=== PATIENT | male | born 1945 | race Caucasian/White ===

== ENCOUNTER 2021-07-30 01:38 | Emergency (ER) | payer MEDICARE, OTHER ==
[~2021-07-30 01:38] MED LIST: BAYER CHEWABLE81 MG PO; CILOSTAZOL100 MG PO; CLEOCIN HCL300 MG PO; CREON DR 6,0001 EACH PO; CRESTOR40 MG PO; FLOMAX0.4 MG PO; FLONASE 0.05% N16 GM; IMDUR ER TAB 3030 MG PO; IPRAT-ALBUT 0.5-3 ML INH; NEURONTIN800 MG PO; NORCO 10-325 T1 EACH PO; NORVASC2.5 MG PO; ONDANSETRON ODT4 MG PO; POTASSIUM CHLO10 ME2 PO; PROTONIX 40 MG40 M1 PO; RANOLAZINE ER500 MG PO; RELISTOR PO; SINGULAIR10 MG PO; VENTOLIN HFA 66.7 GM INH; WELCHOL 625 MG625 MG PO; ZANAFLEX6 MG PO; ZOLPIDEM TARTRA10 MG PO
[2021-07-30 02:23] LABS: HEMOGLOBIN 12.9 gm/dl (14.0-17.5); RED BLOOD COUNT 4.21 M/UL (4.20-5.50); WHITE BLOOD COUNT 9.5 K/UL (4.5-11.0)
[2021-07-30 02:45] LABS: BUN/CREATININE RATIO 10 (0-10)
== END 2021-07-30 03:55 | disposition home or self-care (01) ==
LOC: ER1 01:38
PROVIDERS: Family Medicine
DX: R41.0 Disorientation, unspecified (principal); S62.304A Unspecified fracture of fourth metacarpal bone, right hand, initial encounter for closed fracture; F11.20 Opioid dependence, uncomplicated; G89.4 Chronic pain syndrome; E87.6 Hypokalemia; Z95.0 Presence of cardiac pacemaker; W19.XXXA Unspecified fall, initial encounter
CPT/HCPCS: 0240U; 70450; 72170; 73130; 80053; 82550; 82553; 83605; 83690; 83735; 84439; 84443; 84484; 85025; 93005; 99285; G0480